=== PATIENT | female | born 1995 | race Caucasian/White ===

== ENCOUNTER 2025-03-16 17:56 | Emergency (ER) | payer OTHER, SELFPAY ==
--- NOTE | 2025-03-16 18:07 | ED.DENTAL ---
HPI - Dental/Oral General Chief complaint: Dental/Oral Stated complaint: DENTAL ABSCESS Time Seen by Provider: 03/16/25 18:15 Source: patient Mode of arrival: ambulatory Limitations: no limitations History of Present Illness HPI Narrative: Demi is a 29-year-old female patient presenting to the clinic today with complaints of a possible dental infection. She reports that her right lower molar tooth was bleeding and has possible dental abscess. She denies any fevers, chills, body aches. Cannot get in to see her dentist. Has an appointment to see her dentist on Tuesday but they wanted her to be evaluated to get an antibiotic prior to seen her. Patient is 22 weeks . Related Data Allergies Allergy/AdvReac Type Severity Reaction Status Date / Time No Known Allergies Allergy Unverified 09/29/18 18:48 Review of Systems Review of Systems: Pertinent positives per HPI. Patient denies any fever, chills, rash, headache, visual changes, dizziness, cough, runny nose, sore throat, shortness of breath, chest pain, palpitations, nausea, vomiting, diarrhea, constipation, abdominal pain, or any urinary issues. PMFSH Comments At the time of my signature, I reviewed and agree with the nursing past medical, surgical, social, and family history. There is no relevant family history pertinent to the patient complaint. Exam Narrative: General: Well-developed, well nourished, in no apparent distress Head: Normocephalic, atraumatic Eyes: Pupils equally round and reactive to light bilaterally, EOM intact, sclera and conjunctive clear, no discharge, lids normal Ears: TMs intact and clear, ear canals clear, no drainage, grossly hearing normal. Nose: Nares patent, no discharge, no inflammation, no sinus tenderness. Mouth: Oropharynx without lesions or masses, good dentition, MMM. Cracked tooth/Toothache to right lower 1st molar with gingival swelling Neck: Supple, trachea midline, no enlargement of anterior or posterior cervical nodes, no thyroid masses or goiter palpable. Cardio: Regular rate and rhythm, s1 and s2 normal, no murmur appreciated. Resp: Clear to auscultation bilaterally anteriorly and posteriorly, no rhonchi, rales, wheezing or rubs Course Course Emergency Course: Portions of this record may have been created with voice recognition software. Level of Care: Express Care Visit Vital Signs Vital signs: Vital Signs Temperature 36.4 C L 03/16/25 18:09 Pulse Rate 98 03/16/25 18:09 Respiratory Rate 16 03/16/25 18:09 Blood Pressure 117/75 03/16/25 18:09 Pulse Oximetry 100 03/16/25 18:09 Temperature 36.4 C L 03/16/25 18:09 Pulse Rate 98 03/16/25 18:09 Respiratory Rate 16 03/16/25 18:09 Blood Pressure 117/75 03/16/25 18:09 Pulse Oximetry 100 03/16/25 18:09 Vital signs reviewed MDM - Dental/Oral MDM Narrative Medical decision making narrative: At the time of visit patient is resting comfortably on the exam table. Patient appears to be nontoxic. Complaints of a possible dental infection. She reports that her right lower molar tooth was bleeding and has possible dental abscess. She denies any fevers, chills, body aches. Cannot get in to see her dentist. Has an appointment to see her dentist on Tuesday but they wanted her to be evaluated to get an antibiotic prior to seen her. Patient is 22 weeks . On exam patient has mild tenderness to palpation over the right lower 1st molar with gingival swelling-tooth is cracked-no current bleeding Plan: I suspect patient has a toothache. Prescription for amoxicillin was sent to the pharmacy. Follow-up with dentist as scheduled. Supportive measures were discussed with the patient and they voiced understanding discharge instructions and agrees to treatment plan. Return precautions reviewed Differential Diagnosis Differential diagnosis: Likely gingival abscess, dental caries, toothache, dental abscess, fracture of tooth and aphthous ulcer Discharge Plan Discharge Clinical Impression: Toothache Patient Disposition: Home Condition: Stable Instructions: Antibiotic Form, Toothache (ED) Additional Instructions: Take medications as prescribed-amoxicillin Increase fluids and stay well hydrated May take Tylenol/Motrin as needed for pain or fever May apply Orajel to the affected area to help alleviate pain May apply warm or cool compress to the affected area to help alleviate pain Follow-up with your dentist as soon as possible Patient Language: Brazilian Prescriptions: New amoxicillin 875 mg tablet 875 mg PO Q12H 10 Days Qty: 20 0RF Follow-up/Referrals: Marge Funk APRN [Primary Care Provider, Internal Medicine] Time of Disposition: 18:10 Quality NIH Nursing Documentation ED NIHSS nursing documentation: reviewed/agree
[2025-03-16 18:09] VITALS: BP 117/75; PULSE 98; RESP 16; TEMP 36.4; O2SAT 100
== END 2025-03-16 18:17 | disposition home or self-care (01) ==
PROVIDERS: Emergency Provider Nurse Practitioner Family; PCP Nurse Practitioner Family
DX: O99.612 Diseases of the digestive system complicating pregnancy, second trimester (principal); K08.89 Other specified disorders of teeth and supporting structures; Z3A.22 22 weeks gestation of pregnancy
CPT/HCPCS: 99203; G0463

== ENCOUNTER 2025-05-28 08:32 | Emergency (ER) | payer OTHER, SELFPAY ==
[2025-05-28 08:42] VITALS: BP 121/77; PULSE 102; RESP 16; TEMP 36.3; O2SAT 99
--- NOTE | 2025-05-28 09:08 | ED_ITS ---
HPI - URI/Sore Throat General Chief Complaint: Upper Respiratory Infection Stated Complaint: Sore Throat Time Seen by Provider: 05/28/25 09:00 Source: patient and RN notes reviewed Mode of arrival: ambulatory Limitations: no limitations History of Present Illness HPI Narrative: 29-year-old female presents to the [facility] complaining of upper respiratory symptoms for approximately 8-9 days. Patient reports cough, congestion, sore throat, sinus pressure, mucopurulent nasal drainage. Patient says symptoms are not getting much better. Patient says she has approximate 32 weeks . . Patient denies any complaints or complications. Patient taking Tylenol help with symptoms. Related Data Home Medications ?Medication ?Instructions ?Recorded ?Confirmed ?Last Taken ?Type 05/28/25 Unknown History cetirizine .ROUTE 05/28/25 Unknown His tory sertraline 50 mg tablet mg 05/28/25 Unknown History Allergies Allergy/AdvReac Type Severity Reaction Status Date / Time No Known Allergies Allergy Verified 05/28/25 08:41 Review of Systems Review of Systems: CONSTITUTIONAL: Denies fever, chills, or sweats. EYES: Denies visual changes, redness, or discharge. ENT: Denies rhinorrhea, or otalgia. Positive for congestion sore throat, sinus pressure CARDIOVASCULAR: Denies chest pain, palpitations, or edema. RESPIRATORY: Positive for cough. Negative for wheezing or dyspnea. GASTROINTESTINAL: Denies abdominal pain, nausea, vomiting, or diarrhea. GENITOURINARY: Denies dysuria or hematuria. SKIN: Denies rash or itching. MUSCULOSKELETAL: Denies back pain, joint pain, or myalgia. NEUROLOGIC: Denies headache, numbness, or weakness. PSYCHIATRIC: Denies anxiety or depression. All other systems reviewed are negative, except as documented in HPI. PMFSH Comments At the time of my signature, I reviewed and agree with the nursing past medical, surgical, social, and family history. There is no relevant family history pertinent to the patient complaint. Exam Narrative: GENERAL: This is a well-nourished, well-developed adult, in no apparent distress. They are non ill-appearing, nontoxic appearing. Patient is . HEAD: normocephalic, atraumatic. EYES: Sclera clear/white. Conjunctiva normal. Vision is grossly intact. Extraocular movements intact EARS: External ears normal, auditory canals clear and without drainage, TMs normal without perforation. Hearing grossly intact. NOSE: External nose normal with no obvious nasal discharge, nasal turbinates erythematous, no rhinorrhea. THROAT: Mucous membranes moist, posterior pharynx erythematous with postnasal drip. Uvula midline. NECK: Neck supple, non-tender without lymphadenopathy, masses or thyromegaly. CARDIOVASCULAR: Regular rate and rhythm without murmurs, gallops, or rubs. RESPIRATORY: Clear to auscultation. Breath sounds equal bilaterally. No wheezes, rales, or rhonchi. SKIN: warm, Dry, intact with no suspicious lesions or rash, good texture and turgor. NEURO: awake, alert, and oriented to person, place and time. There were no ob vious focal neurologic abnormalities. EXTREMITIES: No joint tenderness, effusion, or edema noted. BACK: Nontender without deformity. Course Course Level of Care: Express Care Visit Vital Signs Vital signs: Vital Signs Temperature 97.4 F L 05/28/25 08:42 Pulse Rate 102 H 05/28/25 08:42 Respiratory Rate 16 05/28/25 08:42 Blood Pressure 121/77 05/28/25 08:42 Pulse Oximetry 99 05/28/25 08:42 Temperature 97.4 F L 05/28/25 08:42 Pulse Rate 102 H 05/28/25 08:42 Respiratory Rate 16 05/28/25 08:42 Blood Pressure 121/77 05/28/25 08:42 Pulse Oximetry 99 05/28/25 08:42 [facility] MDM Narrative Medical decision making narrative: Rapid strep negative. A throat culture is pending. Given length of symptoms patient likely has bacterial sinusitis. Will treat with amoxicillin. Discussed physical exam findings. Advised supportive measures and signs/symptoms to go to the ER. Pt is appropriate for outpt treatment and f/u. Differential Diagnosis Differential Diagnosis: Differential diagnostic considerations for upper respiratory infection include upper respiratory infection, croup, otitis media, sinusitis, viral infection, bronchitis, influenza, pharyngitis, strep, uvulitis. Critical Care Time Critical Care Time Critical Care Time: No Discharge Plan Discharge Clinical Impression: Sinusitis Qualifiers: Sinusitis location: unspecified location Chronicity: acute Recurrence: non- recurrent Qualified Code(s): J01.90 - Acute sinusitis, unspecified Patient Disposition: Home Condition: Stable Instructions: Antibiotic Form, Sinusitis (ED) Additional Instructions: Your rapid strep negative today a throat culture be sent off it is positive for strep you will be contacted. Take the antibiotics as directed and complete the course even if you start to feel better. You may use a Neti pot saline rinse 3 times a day with lukewarm distilled water Continue to take Tylenol as needed for pain or fevers, follow instructions on the bottle Use a humidifier or vaporizer at night. Drink plenty of water. 8-10 glasses per day. Use flonase 2 times per day for 5 days then as needed Follow up with Primary provider in 3-5 days Please go to the ER if he develops any difficulty breathing, chest pain, vomiting, worsening symptoms, or any other concerns Patient Language: Slovenian Prescriptions: New amoxicillin 875 mg tablet 875 mg PO Q12H 7 Days Qty: 14 0RF No Action sertraline 50 mg tablet cetirizine [Zyrtec] .ROUTE Follow-up/Referrals: Marge Funk APRN [Primary Care Provider, Internal Medicine] Time of Disposition: 09:05
[2025-05-28 10:02] LABS: EDSTREPNEGPOS1 Negative (Negative)
== END 2025-05-28 09:08 | disposition home or self-care (01) ==
PROVIDERS: PCP Nurse Practitioner Family
DX: J01.90 Acute sinusitis, unspecified (principal); O99.513 Diseases of the respiratory system complicating pregnancy, third trimester; Z3A.32 32 weeks gestation of pregnancy; O99.343 Other mental disorders complicating pregnancy, third trimester; F41.9 Anxiety disorder, unspecified
CPT/HCPCS: 87081; 87880; 99213; G0463